=== PATIENT | female | born 1980 | race Caucasian/White ===

== ENCOUNTER 2017-04-02 19:27 | Emergency (ER) | payer MEDICAID ==
[~2017-04-02] VITALS: Ht 170.2 cm; Wt 104.3 kg
[2017-04-02 19:35] VITALS: BP 140/81
== END 2017-04-02 20:39 | disposition home or self-care (01) ==
LOC: ED 20:15
DX: M77.51 Other enthesopathy of right foot and ankle (principal)
CPT/HCPCS: 99284